=== PATIENT | female | born 1935 | race Caucasian/White ===

== ENCOUNTER 2022-07-05 10:06 | Outpatient (CLI) | payer MEDICARE, SELFPAY | END 2022-07-05 10:07 | disposition home or self-care (01) | LOC: INJ CL 10:08 | PROVIDERS: PCP Internal Medicine; Visit Provider Family Medicine | DX: M17.12 Unilateral primary osteoarthritis, left knee (principal); M25.562 Pain in left knee | CPT/HCPCS: 64454 ==

== ENCOUNTER 2022-08-09 11:40 | Outpatient (CLI) | payer MEDICARE, SELFPAY | END 2022-08-09 11:41 | disposition home or self-care (01) | LOC: INJ CL 11:41 | PROVIDERS: PCP Internal Medicine; Visit Provider Family Medicine | DX: M17.12 Unilateral primary osteoarthritis, left knee (principal); G89.29 Other chronic pain; M25.562 Pain in left knee | CPT/HCPCS: 64624; J2250; J3010 ==